=== PATIENT | female | born 1985 | race Caucasian/White ===

== ENCOUNTER 2021-06-18 09:02 | Outpatient (CLI) | payer OTHER, SELFPAY ==
--- NOTE | 2021-06-18 09:00 | RT.EKG_ITS ---
APPROVED REPORT Exam: Resting ECG Reason for Exam: arrythmias Patient Location: O HR:65 bpm ECG Measurements Heart Rate 65 AXIS IN 122 P 32 QRSd 96 QRS 58 QT 406 T 43 QTc 423 Conclusion Sinus rhythm...normal P axis, V-rate 50- 99 ST elev, probable normal early repol pattern...ST elevation, age<55 Baseline wander in lead(s) V4,V5,V6
== END 2021-06-18 09:03 | disposition home or self-care (01) ==
LOC: DI.CARD 09:04
PROVIDERS: PCP Nurse Practitioner Family; Visit Provider Internal Medicine Cardiovascular Disease
DX: I49.9 Cardiac arrhythmia, unspecified (principal); R07.9 Chest pain, unspecified
CPT/HCPCS: 93010

== ENCOUNTER 2021-10-06 01:11 | Outpatient (CLI) | payer OTHER, SELFPAY ==
--- NOTE | 2021-10-06 06:45 | DI.RAD_ITS ---
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 Two images were obtained. PA and lateral views were obtained. COMPARISON: CR CHEST 2 VIEWS PA,LAT from 04/23/2015 FINDINGS: MEDIASTINUM: Normal. HEART: Normal. PULMONARY VASCULATURE: Normal. LUNGS: Clear. PLEURAL SPACE: No pleural effusion or pneumothorax. BONE:Within normal limits for the patient's age. OTHER FINDINGS:Normal. IMPRESSION: No acute pulmonary findings. DATA REPOSITORY: RADIATION DOSE DELIVERED:
== END 2021-10-06 01:31 ==
PROVIDERS: PCP Nurse Practitioner Family; Visit Provider Student in an Organized Health Care Education/Training Program
DX: G71.11 Myotonic muscular dystrophy (principal); R06.2 Wheezing; R06.09 Other forms of dyspnea
CPT/HCPCS: 71046

== ENCOUNTER 2021-10-13 01:29 | Outpatient (CLI) | payer OTHER, SELFPAY ==
[2021-10-13] MEDS: Albuterol HFA 18 GM 200 PUFF INH IH (09:46)
[2021-10-13] MEDS: Inhaler, Assist Device 1 EACH MC (09:46)
--- NOTE | 2021-10-13 11:53 | W.PFT ---
Date of service: 10/13/21 Time of Service: 08:15 Pulmonary Function Test Result Requesting Provider Duchene Indications: Myotonic dystrophy Interpretation Spirometry: There is no airflow limitation. There is no significant bronchodilator effect Lung Volumes: Lung volumes are normal. Diffusion Capacity: Diffusion is normal. Airway Pressure: Airways resistance is normal. Impression Normal pulmonary function test. Note: When compared to 12/25/20, the FEV1 and FVC are slightly improved. Clinical Correlation therefore is recommended.
== END 2021-10-13 01:30 | disposition home or self-care (01) ==
LOC: RT 01:30
PROVIDERS: PCP Nurse Practitioner Family; Visit Provider Student in an Organized Health Care Education/Training Program
DX: G71.11 Myotonic muscular dystrophy (principal); R06.09 Other forms of dyspnea; R06.2 Wheezing; Z87.891 Personal history of nicotine dependence
CPT/HCPCS: 94060; 94726; 94729

== ENCOUNTER 2022-01-26 14:34 | Outpatient (CLI) | payer OTHER, SELFPAY ==
[2022-01-26 16:33] LABS: Abs Immature Grans 0.01 10^3/uL (0.0-0.06); Absolute Basophil Count 0.02 10^3/uL (0.0-0.2); Absolute Eosinophil Count 0.25 10^3/uL (0.0-0.7); Absolute Lymphocyte Count 1.68 10^3/uL (1.2-3.4); Absolute Monocyte Count 0.34 10^3/uL (0.1-0.8); Absolute Neutrophil Count 2.88 10^3/uL (1.2-6.7); Basophils % 0.4; Eosinophils % 4.8; HCT 40.5 % (36.0-46.0); HGB 13.3 g/dL (11.2-15.7); Immature Grans % 0.2; Lymphocytes % 32.4; MCH 29.1 pg (27.0-33.0); MCHC 32.8 % (32.0-36.0); MCV 88.6 fL (80-95); MPV 12.3 fL (8.0-11.0); Monocytes % 6.6; Neutrophils % 55.6; Nucleated RBC 0 %; Platelet Count 191 10^3/uL (130-400); RBC 4.57 10^6/uL (3.93-5.22); RDW 12.4 % (11.7-14.6); RDW-SD 40.3 fL; WBC 5.18 10^3/uL (4.4-10.8)
[2022-01-26 16:39] LABS: ALT 24 U/L (14-59); AST 13 U/L (15-37); Albumin 4.3 g/dL (3.4-5.0); Alkaline Phosphatase 78 U/L (46-116); Anion Gap 7.8 mmol/L (3-11); BUN 9 mg/dL (7-18); Bilirubin, Total 0.6 mg/dL (0.2-1.0); CO2 28.2 mmol/L (21.0-32.0); CREATININE 0.8 mg/dL (0.55-1.02); Calcium 9.1 mg/dL (8.5-10.1); Chloride 103 mmol/L (98-107); Glucose 90 mg/dL (74-106); Lipase 83 U/L (73-393); Potassium 3.5 mmol/L (3.5-5.1); Sodium 139 mmol/L (136-145); Total Protein 7.3 g/dL (6.4-8.2)
[2022-01-26 16:41] LABS: C-Reactive Protein < 0.05 mg/dL (0.0-0.3)
[2022-01-26 20:33] LABS: Bilirubin Negative (Negative); Blood Negative (Negative); Clarity Clear (Clear); Glucose Negative (Negative); Ketones Negative (Negative); Leukocyte Esterase Negative (Negative); Nitrite Negative (Negative); Specific Gravity 1.025 (1.005-1.025); Urobilinogen 0.2 EU/dL (Up TO 0.2)
== END 2022-01-26 14:35 | disposition home or self-care (01) ==
LOC: LBO 14:34
PROVIDERS: PCP Nurse Practitioner Family; Visit Provider Family Medicine
DX: I10 Essential (primary) hypertension (principal); R10.11 Right upper quadrant pain; R19.8 Other specified symptoms and signs involving the digestive system and abdomen; J45.909 Unspecified asthma, uncomplicated
CPT/HCPCS: 36415; 80053; 83690; 81003; 85025; 86140

== ENCOUNTER 2022-08-30 12:21 | Outpatient (REF) | payer OTHER, SELFPAY ==
--- NOTE | 2022-08-30 09:25 | PAPFT_PTH ---
PATIENT: Jennie Logan LOC: [facility] U#:[id number] AGE/SX: 37/F ROOM: RE08/30/[address]: Milana Lundy MD : 1985 BED: DIS: 08/30/2022 SPEC #: [id number] RECD: 08/30/22 12:44 STATUS: KARIME REQ #: [id number] JASMIN: 08/30/22 09:[address]: Milana Lundy DEPT: [facility] Cytology RECD BY: Martina Hurtado ENTERED: 08/30/22 12:45 SP TYPE: PAPFT OTHR DR: Alonzo Santos, MATTHEW Tissues: 1 - CX/ENDOCX FOR PAP SMEARS Procedures: PAP THIN PREP/UVM Screening HPV DNA PROBE Comments:
== END 2022-08-30 12:22 | disposition home or self-care (01) ==
LOC: LBN 12:21
PROVIDERS: PCP Nurse Practitioner Family; Visit Provider Obstetrics & Gynecology
DX: Z12.4 Encounter for screening for malignant neoplasm of cervix (principal); Z11.51 Encounter for screening for human papillomavirus (HPV)
CPT/HCPCS: 88142; 87624

== ENCOUNTER 2022-12-01 11:39 | Emergency (ER) | payer OTHER, SELFPAY ==
[2022-12-01 11:56] VITALS: BP 139/76; PULSE 79; RESP 17; TEMP 36.8; O2SAT 99
--- NOTE | 2022-12-01 12:15 | DI.US_ITS ---
Exam(s) US LOWER EXTREMITY VENOUS RT EXAM: US LOWER EXTREMITY VENOUS RT CLINICAL HISTORY: right leg pain, hx of dvt TECHNIQUE: Right lower extremity venous ultrasound performed using grayscale, color-flow, and spectr al Doppler analysis. COMPARISON: No exams were available for comparison FINDINGS: The right common femoral, femoral and popliteal veins demonstrate normal compressibility, augmentatio n, and color Doppler. The posterior tibial veins are patent. The saphenofemoral junction is unremark able. There is no evidence of a Rios cyst. The soft tissues are unremarkable. IMPRESSION: 1. No evidence of a right lower extremity DVT. 2. Findings were discussed with the emergency department at 2:05 p.m. on 12/01/2022. DATA REPOSITORY:
--- NOTE | 2022-12-01 12:23 | W.ED.GENAD ---
Discharge Plan Disposition Patient Disposition: Home Condition: Stable Discharge Details Clinical Impression: Leg pain, right, Generalized headaches Primary Care Provider: Alonzo Santos ED Provider: Abraham Gutierres Home Meds and New Rx's Prescriptions: New cyclobenzaprine 10 mg tablet 10 mg PO TID PRNQty: 20 0RF Continued (DME) Space Chamber Spacer See Rx Instructions .ROUTE .MEDSUPPLY Qty: 1 0RF Rx Instructions: As directed benzonatate 100 mg capsule 100 mg PO TID PRN (Reason: cough) Qty: 60 0RF albuterol (refill) 90 mcg/actuation aerosol inhalation carboxymethylcellulose sodium [Refresh Tears] 0.5 % drops 1 drp ophthalmic (eye) QID Mirena 20 mcg/24 hours (7 yrs) 52 mg intrauterine device 1 device intrauterine ONCE Rx Instructions: as a single dose Discharge Instructions Additional Instructions: Your ultrasoud and cat scan did not show concerning findings at this time follow up with your primary care provider and manager education if you have severe worsening pain, or new symptoms such as high fevers return to the emergency department Medical Decision Making 37 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 Denies any fevers, chills. She also has had intermittent headaches for the past few weeks and localizes it to just above the pinna bilaterally. She arrives hemodynamically stable speaking clearly and in no distress. She has a rash on her forehead that has been present for weeks, is mildly erythematous and various sizes and shapes, flat, not warm to touch and does donny. Suspect dermatitis, no findings to suggest infectious etiology or sjs/ten. She is caox4, clear lungs, normal tm's, no meninismus, no focal deficits, normal gait. She localzies the right leg pain to the mid posterior right leg and has no noticeable swelling of the leg, intact distal sensation. She is able to bear weight and has no bony tenderness, has mild tenderness of the mid quadriceps where she has the pain, no fluctuance or rash. Given her history will obtain dvt study of the right leg though pain seems musculoskeletal in nature. Her headache is intermittent and no fevers or meningismus so doubt infectious etiology. Will obtain ct of the head though suspicion for hemorrhage is low. imaging unremarkable, she is stable in no distress. Unclear etiology for her symptoms but do not feel life threatening or emergent cause for her symptoms is present. She is stable for d/c, advised to f/u with her pcp and return precautions given Differential Diagnosis Differential Diagnosis: strain, muscle pain, tension headaches, dvt Imaging Data Radiologic Study: Attestation: I personally reviewed and interpreted this imaging study as follows: Imaging: CT Scan Radiologist's impression: no acute findings Radiologic Study #2: Attestation: I personally reviewed and interpreted this imaging study as follows: Imaging: X-Ray and Ultrasound Radiologist's impression: no acute findings HPI General Mode of arrival: ambulatory. Date/Time Provider Initiated Documentation: 12/01/22 11:41. Limitations to Documentation: no limitations. Information obtained by: patient. History of Present Illness 37 year old F presents to the emergency department with the chief complaint of right leg pain, described as moderate, Quality is described as aching, and is localized to the right and lower extremity. Patient reports no radiation. Patient started experiencing this week(s) (3) and it has been constant. No relieving factors improve symptom(s), No exacerbating factors reported . Patient notes headaches. Related Data Home Medications Medication Instructions Recorded Confirmed inhalational spacing device (Space #1 ea 01/25/22 12/01/22 Chamber) albuterol (refill) 90 mcg inhalation 06/07/22 12/01/22 mcg/actuation aerosol inhaler carboxymethylcellulose sodium 0.5 1 drp ophthalmic (eye) QID 06/08/22 12/01/22 % eye drops (Refresh Tears) levonorgestrel 21 mcg/24 hours (8 1 device intrauterine ONCE 06/08/22 12/01/22 yrs) 52 mg intrauterine device (Mirena) benzonatate 100 mg capsule 100 mg PO TID PRN cough #60 caps 08/11/22 12/01/22 cyclobenzaprine 10 mg tablet 10 mg PO TID PRN #20 tabs 12/01/22 Previous Rx's Medication Instructions Recorded inhalational spacing device (Space #1 ea 01/25/22 Chamber) benzonatate 100 mg capsule 100 mg PO TID PRN cough #60 caps 08/11/22 cyclobenzaprine 10 mg tablet 10 mg PO TID PRN #20 tabs 12/01/22 Allergies Allergy/AdvReac Type Severity Reaction Status Date / Time amoxicillin Allergy Severe Anaphylaxis Verified 12/01/22 11:59 ampicillin Allergy Severe Anaphylaxis Verified 12/01/22 11:59 latex Allergy Severe Anaphylaxis Verified 12/01/22 11:59 Penicillins Allergy Severe Anaphylaxsi Verified 12/01/22 11:59 s Sulfa (Sulfonamide Allergy Severe Anaphylaxsi Verified 12/01/22 11:59 Antibiotics) s acetaminophen [From Tylenol] Allergy Unknown Verified 12/01/22 11:59 aspirin Allergy Unknown Wheezing Verified 12/01/22 11:59 nut - unspecified Allergy Unknown Swelling/Ed Verified 12/01/22 11:59 david magnesium AdvReac Intermediate Verified 12/01/22 11:59 procaine HCl [From Novocain] AdvReac Unknown effective Verified 12/01/22 11:59 in high does only codeine AdvReac effective Verified 12/01/22 11:59 only in high doses rabbit fur Allergy Unknown Uncoded 12/01/22 11:59 depo provera AdvReac Severe swelling Uncoded 12/01/22 11:59 at inj.site General Stated Complaint: GenMedical ERIC: 3 Review of Systems All systems reviewed & are unremarkable except as noted in HPI and below Constitutional Constitutional: Denies chills, Denies fever(s) and Denies weakness Eyes Eyes: Denies loss of vision Cardiovascular Cardiovascular: Denies chest pain and Denies dyspnea Respiratory Respiratory: Denies cough and Denies dyspnea Gastrointestinal Gastrointestinal: Denies abdominal pain, Denies nausea and Denies vomiting Musculoskeletal Musculoskeletal: Denies joint swelling Neurologic Neurologic: Denies loss of vision and Denies weakness PFSH All Active Problems (Updated 12/01/22 @ 14:03 by Abraham Gutierres MD) Alopecia areata (Acute 07/02/15) 06/2015; DR. URENA Dry eye syndrome of bilateral lacrimal glands (Acute ~02/24/18) Myopia, bilateral (Acute ~02/17/18) Regular astigmatism, bilateral (Acute ~02/17/18) Unspecified cataract (Chronic ~02/17/18) PRESENILE POSTERIOR SUBCAPSULAR POLAR Dorsalgia (Acute ~04/20/18) Eosinophilic esophagitis (Acute ~01/16/18) Myotonic muscular dystrophy (Acute ~05/26/18) Chronic pain syndrome (Chronic) Intestinal polyps (Acute) Dysphagia (Acute) Hx bleach ingestion age 2, also MD Hypermobility of joint (Acute) Neuropathic pain (Acute) Exercise intolerance (Acute) Sicca syndrome with keratoconjunctivitis (Acute) Tricuspid regurgitation (Acute) Audrey-Danlos syndrome type III (Acute) Cardiac arrhythmia (Acute) Right shoulder injury (Acute) Autoimmune disease (Acute) Pelvic pain (Acute) Abnormal uterine bleeding (Acute) Asthma (Chronic) Heart murmur (Acute) Headache (Acute) Skin rash (Acute) Leg pain, right (Acute) Generalized headaches (Acute) Medical History Chalazion removal Constipation Costochondritis (~07/15/10) Depression with anxiety (~10/04/12) Eustachian tube dysfunction (~02/12/11) both ears Fibroids Several very small intramural fibroids on sono 10/13 Fracture of unspecified phalanx of right index finger, initial encounter for closed fracture (~11/13/19) Galactorrhea (~10/04/12) NORMAL PROLACTINS Hemangioma of skin and subcutaneous tissue (~03/14/18) History of venous thromboembolism (03/28/15) Pt reports Hx VTE and PE in 2011 on OCPs Meniere's disease of both ears (~11/26/11) Post traumatic stress disorder (~10/04/12) Posterior capsule opacification (~05/07/12) Pseudophakia (~06/02/11) Tobacco use (03/28/15) Surgical History EGD - IV Sedation UNSURE OF DATE; [facility] WITH ESOPHAGEAL DILATION; PATIENT REPORTED Extraction of cataract Bilateral H/O colposcopy with cervical biopsy (~09/30/10) w/ endocervical curettage H/O LEEP hemangioma removal (~04/2015) History of esophagogastroduodenoscopy History of laser assisted in situ keratomileusis right eye KNEE SURGERIES Bilateral release right and left patella Family History Mother Diabetes Heart disease Stroke Depression Hypertension Father Essential hypertension Myotonic dystrophy Hyperlipidemia Skin cancer Sister Essential hypertension Brother Essential hypertension Hyperlipidemia Heart disease Grandfather Essential hypertension Heart disease Hyperlipidemia Grandfather Ovarian cancer Essential hypertension Personal history of malignant neoplasm COLON/PROSTATE Heart disease Hyperlipidemia Myotonic dystrophy Stroke Grandmother Diabetes Essential hypertension Personal history of malignant neoplasm BRAIN Grandmother Essential hypertension Personal history of malignant neoplasm BREAST Heart disease Hyperlipidemia Maternal Aunt Ovarian cancer Myotonic dystrophy Maternal Aunt Ovarian cancer Maternal Uncle Myotonic dystrophy Social History Smoking/Tobacco Use Status: Former Tobacco Use tobacco type: cigarettes Quit Date: 10/24/15 Tobacco: How many years used: 10 Second Hand Exposure: Yes Smoking risk assessment performed?: Yes Alcohol Intake: current Alcohol Intake frequency: a few times a month Alcohol type: hard liquor Drug use: Never Caregiver/Support person: No Household members: spouse, family and children Housing: house Communication Needs: None Do you need help understanding health information?: Rarely Pets and animals: Yes Pets and animals: cat(s) and dog(s) Sexually active: Yes Do you think of yourself as: straight/heterosexual Current gender identity: female What is your relationship status?: How often do you talk on the phone with friends or family?: once per week How often do you get together with friends or relatives?: three or more times per week How often do you attend judaism or mandaeism services?: decline to answer Do you belong to any clubs or organized social groups?: no Panel score (0-1 are the most socially isolated patients): 2 What type of physical activity do you participate in: walking Duration: 30-45 minutes/day Frequency: 5-6 times per week Special laith needs: No Seatbelt use: always Helmet use: Yes Helmet use: always Drive intox or ride w/intox driver guard: No Do you feel safe at home: Yes History History 1 Para 1 Hx # Term Pregnancies 1 Multiple births Hx # Pregnancies Ectopic pregnancies AB induced Hx Number of Living Children 1 AB spontaneous Past Pregnancies Del. Date GA/Weeks # Preg Succ Route Wgt Sex Labor Lgth Anesthesia Location [facility] 10/25/16 37 vaginal Male [facility] Delivery Date: 10/25/16 Last Updated by: Milana Lundy M.D. cardiac arrest in response to epinephrine Exam Const General: no acute distress Orientation: alert HENMT Head: no palpable skull fracture and normocephalic Ears: external ears normal General nose exam: external nose normal Mouth: moist mucous membranes Eyes General: appearance normal, both eyes and all related structures Neck Neck: normal visual inspection Resp Effort & Inspection: normal respiratory effort and able to speak in complete sentences Cardio Rate: regular rate Skin General skin exam: elasticity normal Neuro General: patient alert and patient oriented x3 Extrem General: normal to inspection Psych Mental Status: mental status grossly normal Course Vital Signs Vital signs: Vital Signs Temperature 36.8 C 12/01/22 11:56 Pulse 79 12/01/22 11:56 Respiratory Rate 17 12/01/22 11:56 Blood Pressure 139/76 12/01/22 11:56 Pulse Oximetry 99 12/01/22 11:56 Temperature 36.8 C 12/01/22 11:56 Temperature Source Tympanic 12/01/22 11:56 Pulse 79 12/01/22 11:56 Respiratory Rate 17 12/01/22 11:56 Respiratory Effort 12/01/22 12:12 Respiratory Depth Normal 12/01/22 12:12 Respiratory Pattern Normal 12/01/22 12:12 Blood Pressure 139/76 12/01/22 11:56 Blood Pressure Position Sitting 12/01/22 11:56 Pulse Oximetry 99 12/01/22 11:56 Oxygen Delivery Method Room Air 12/01/22 11:56 Oxygen Flow Rate 0 12/01/22 11:56 Pain Level 7 12/01/22 11:56
--- NOTE | 2022-12-01 13:15 | DI.CT_ITS ---
Exam(s) CT HEAD WO EXAM: CT HEAD WO CLINICAL HISTORY: headaches. TECHNIQUE: Imaging Protocol: Axial computed tomography images with coronal and sagittal reformatted images were created and reviewed COMPARISON: No exams were available for comparison FINDINGS: Ventricles and Extra axial spaces: Normal in size and morphology for the patient's age. Hemorrhage: None. Cerebral parenchyma: Normal. Midline shift: None. Brainstem/Cerebellum: Normal. Calvarium: Normal. Visualized Paranasal sinuses/Mastoids: Clear. Soft Tissues: Unremarkable. IMPRESSION: 1. No acute intracranial process. 2. Findings were discussed with the emergency department at 1:40 p.m. on 12/01/2022. RADIATION DOSE DELIVERED: 677.6mGy.cm Total DLP DATA REPOSITORY: All CT scans at this facility are submitted to the National Radiology Data Registry (NRDR) Dose Index Registry (DIR) with the [employer] (ACR). RADIATION OPTIMIZATION: All CT scans at this facility use at least one of these dose optimization te chniques: automated exposure control; mA and/or kV adjustment per patient size (includes targeted exa ms where dose is matched to clinical indication); or iterative reconstruction.
== END 2022-12-01 14:20 | disposition home or self-care (01) ==
PROVIDERS: Emergency Provider Emergency Medicine; PCP Nurse Practitioner Family
DX: M79.651 Pain in right thigh (principal); R51.9 Headache, unspecified
CPT/HCPCS: 81025; 99284; 70450; 93971

== ENCOUNTER 2022-12-09 02:49 | Outpatient (CLI) | payer OTHER, SELFPAY ==
[2022-12-09] MEDS: Albuterol HFA 18 GM 200 PUFF INH IH (11:22)
[2022-12-09] MEDS: Inhaler, Assist Device 1 EACH MC (11:23)
--- NOTE | 2022-12-10 15:24 | W.PFT ---
Date of service: 12/09/22 Time of Service: 08:04 Pulmonary Function Test Result Requesting Provider Pauline Indications: Muscular dystrophy Interpretation Spirometry: There is no airflow limitation. There is no significant bronchodilator response. Normal MIP. Low MEP. Lung Volumes: Normal lung volumes. Diffusion Capacity: Normal diffusion. Airway Pressure: Normal resistance. Note: Normal pulmonary function testing. The significance of an isolated low MEP is unclear. Clinical Correlation therefore is recommended.
== END 2022-12-09 02:50 | disposition home or self-care (01) ==
LOC: RT 02:49
PROVIDERS: PCP Nurse Practitioner Family; Visit Provider Student in an Organized Health Care Education/Training Program
DX: G71.11 Myotonic muscular dystrophy (principal); Z87.891 Personal history of nicotine dependence
CPT/HCPCS: 94060; 94726; 94729

== ENCOUNTER 2023-11-23 09:52 | Outpatient (REF) | payer OTHER, SELFPAY | END 2023-11-23 09:53 | disposition home or self-care (01) | LOC: LBN 09:52 | PROVIDERS: PCP Nurse Practitioner Family; Visit Provider Obstetrics & Gynecology | DX: R10.2 Pelvic and perineal pain (principal) | CPT/HCPCS: 87480; 87510; 87660 ==

== ENCOUNTER → 2023-12-13 04:26 | Outpatient (CLI) | payer OTHER, SELFPAY ==
--- NOTE | 2023-12-13 06:45 | DI.RAD_ITS ---
Exam(s) XR CHEST 2V PA LATERAL EXAM: XR CHEST 2V PA LATERAL CLINICAL HISTORY: persistent cough after antibiotics,r05.9. TECHNIQUE: 2D digital imaging was performed. COMPARISON: CR XR CHEST 2V PA LATERAL from 10/06/2021 FINDINGS: 2 views: Heart size is normal. The mediastinum is not widened. Lungs are clear. No infiltrates nor pleural effusions. IMPRESSION: No acute pulmonary findings. DATA REPOSITORY: RADIATION DOSE DELIVERED:
== END ==
PROVIDERS: PCP Nurse Practitioner Family; Visit Provider Nurse Practitioner Family
DX: R05.9 Cough, unspecified (principal)
CPT/HCPCS: 71046

== ENCOUNTER 2024-01-20 02:56 | Outpatient (CLI) | payer OTHER, SELFPAY ==
[2024-01-20] MEDS: Levalbuterol HFA 15 GM INH 4 PUFF IH (09:32)
[2024-01-20] MEDS: Inhaler, Assist Device 1 EACH MC (09:32)
--- NOTE | 2024-01-20 12:51 | W.PFT ---
Date of service: 01/20/24 Time of Service: 08:05 Pulmonary Function Test Result Indications: Myotonic muscular dystrophy Interpretation Spirometry: There is no airflow limitation. No bronchodilator response. Lung Volumes: Normal lung volumes Diffusion Capacity: Normal diffusion Airway Pressure: No increased airways resistance Impression Normal pulmonary function testing Clinical Correlation therefore is recommended.
== END 2024-01-20 02:57 | disposition home or self-care (01) ==
LOC: RT 02:56
PROVIDERS: PCP Nurse Practitioner Family; Visit Provider Student in an Organized Health Care Education/Training Program
DX: G71.11 Myotonic muscular dystrophy (principal)
CPT/HCPCS: 94060; 94726; 94729

== ENCOUNTER 2024-05-08 09:14 | Outpatient (CLI) | payer OTHER, SELFPAY ==
[2024-05-08 09:41] LABS: Calculated LDL 80 mg/dL (<100); Cholesterol 143 mg/dL (<200); HDL Cholesterol 51 mg/dL (40-60); Triglyceride 61 mg/dL (<150)
[2024-05-15 15:03] LABS: Vascular Endothelial Growth Fa 60.7 pg/mL (<=96.2)
== END 2024-05-08 09:15 | disposition home or self-care (01) ==
LOC: LBO 09:14
PROVIDERS: PCP Nurse Practitioner Family; Visit Provider Physician Assistant Surgical
DX: Z13.220 Encounter for screening for lipoid disorders (principal); J84.81 Lymphangioleiomyomatosis; J98.4 Other disorders of lung
CPT/HCPCS: 36415; 80061; 83520

== ENCOUNTER 2024-05-18 14:14 | Outpatient (CLI) | payer OTHER, SELFPAY ==
[2024-05-18 22:28] LABS: Rheumatoid Factor 16.1 IU/mL (<12.0)
[2024-05-21 09:49] LABS: Alpha 1 Antitrypsin,Serum 129 mg/dL (90-200); Kappa Free Light Chain 1.13 mg/dL (0.33-1.94); Lambda Free Light Chain 0.92 mg/dL (0.57-2.63)
[2024-05-21 11:11] LABS: Ro60 Ab, IgG 13.8 CU (<20.0); SS-A/Ro, IgG <2.3 CU (<20.0); SS-B (La) Ab, IgG 8.5 CU (<20.0)
[2024-05-21 13:23] LABS: ANA Interpretation Negative (Negative)
== END 2024-05-18 14:15 | disposition home or self-care (01) ==
LOC: LBO 14:15
PROVIDERS: PCP Nurse Practitioner Family; Visit Provider Physician Assistant Surgical
DX: J98.4 Other disorders of lung (principal)
CPT/HCPCS: 36415; 82103; 83883; 86038; 86235; 86431

== ENCOUNTER 2024-08-24 02:56 | Outpatient (CLI) | payer OTHER, SELFPAY ==
[2024-08-24] MEDS: Inhaler, Assist Device 1 EACH MC (12:33)
[2024-08-24] MEDS: Methacholine 100 MG VIAL IH (12:33)
[2024-08-24] MEDS: Levalbuterol HFA 15 GM INH 4 PUFF IH (14:01)
--- NOTE | 2024-08-28 14:29 | PFT_ITS ---
Date of service: 08/24/24 Time of Service: 10:11 Pulmonary Function Test Result Indications: Myotonic dystrophy Interpretation Spirometry: No baseline airflow limitation. There was a 5% decrease in FEV1 with admin istration of 16 mg/mL methacholine. There was a 6% decrease in FEV1 and a 7% increase in FVC with supine positioning. Impression Normal baseline spirometry. Negative methacholine challenge. No change in spirometry with supine positioning. Clinical Correlation therefore is recommended.
== END 2024-08-24 02:57 | disposition home or self-care (01) ==
LOC: RT 02:56
PROVIDERS: PCP Nurse Practitioner Family; Visit Provider Physician Assistant Surgical
DX: G71.11 Myotonic muscular dystrophy (principal)
CPT/HCPCS: 94060; 94070; J7674

== ENCOUNTER 2024-09-11 01:54 | Outpatient (CLI) | payer OTHER, SELFPAY ==
--- NOTE | 2024-09-11 10:20 | DI.MAMMO_ITS ---
Exam(s) MAMMO SCREENING EXAM: MAMMO SCREENING CLINICAL HISTORY: screening,Z12.39. TECHNIQUE: Bilateral full field digital CC and MLO mammographic images were obtained with 3D tomosyn thesis and utilizing computer aided detection (CAD). COMPARISON: None. This is a baseline mammogram on this 39-year-old patient FINDINGS: Fibroglandular tissue is moderately dense, this somewhat decreasing the sensitivity of the mammogram for finding hidden underlying lesions. There are no obvious focal findings in the right breast. In the left breast on the 3D MLO view there is a subtle suggestion of a 1.7 x 1.3 cm well-defined ova l nodule located 4 cm above the nipple on the MLO view.. Spot compression view and ultrasound recomm ended. There are no malignant-appearing microcalcification groups in this region or elsewhere in either [address]. There is no significant architectural distortion nor skin thickening-retraction. IMPRESSION: Dense bilateral fibroglandular tissue. No radiographic evidence of malignancy in the right breast. However, there is the suggestion of a 17 x 13 mm well-defined nodule in the left breast as described above. Spot compression MLO view and breast ultrasound are recommended. BI-RADS Category 0 - Incomplete: Need additional imaging evaluation Breast Density - Category C - Heterogeneously dense Breast density Category C or D implies that the patient has dense breast tissue. Dense breast tissue can make it harder to find cancer on a mammogram. Dense breast tissue is also associated with an incr eased risk of breast cancer. This information about the result of the mammogram report was provided to the patient to raise their awareness. Use this report when you speak with the patient about their risks for breast cancer, which includes their family history. At that time, you may recommend additional screening tests (Ultrasoun d or MRI) as these tests may add significant information. A negative radiographic report should not delay biopsy if a dominant or clinically suspicious mass is present. Up to ten percent of cancers are not identified on mammography. A negative report may reinforce clinical impression. Adenosis and dense breasts may obscure an underlying neoplasm. False positive reports average 6 to 10%. Patient will receive a letter notifying them of these results.
== END 2024-09-11 02:14 ==
LOC: DI 01:54
PROVIDERS: PCP Nurse Practitioner Family; Visit Provider Nurse Practitioner Family
DX: Z12.31 Encounter for screening mammogram for malignant neoplasm of breast (principal); R92.323 Mammographic fibroglandular density, bilateral breasts; R92.333 Mammographic heterogeneous density, bilateral breasts
CPT/HCPCS: 77063; 77067

== ENCOUNTER 2024-09-18 00:46 | Outpatient (CLI) | payer OTHER, SELFPAY ==
--- NOTE | 2024-09-18 | DI.US_ITS ---
Exam(s) MG MAMMO SCREEN CALL BACK UNI US BREAST LT LIMITED EXAM: MG MAMMO SCREEN CALL BACK UNI and U/S breast LT limited CLINICAL HISTORY: 17 x 13 mm well-defined oval nodule in lt breast 4 cm above nipple. TECHNIQUE: Craniocaudal and mediolateral oblique Full Field Digital Mammography views of the left br east with Computer Aided Diagnosis followed by Tomosynthesis and left breast ultrasound. COMPARISON: Comparison is made with prior examinations. FINDINGS: Mammography/Tomosynthesis: Masses/Architectural Distortion: The well-circumscribed ovoid nodule in the superior retroareolar reg ion of the left breast is again visualized. Microcalcifictions: No suspicious pleomorphic-type are seen. Skin Thickening/Nipple Retraction: None. Limited left breast US: Echotexture: Normal appearance of the glandular tissue. Shadowing: No suspicious foci. Cyst: Several simple cysts are seen in the left breast in the 12 to 4 o'clock region. There is a 1.8 x 0.9 x 1.3 cm cyst at the 12 o'clock position of the left breast 3 cm from the nipple which would c orrespond in location to the mammographic abnormality. No suspicious cysts are seen. Solid lesions: None seen. Ductal dilation: None. IMPRESSION: 1. No evidence of malignancy is noted. 2. Unless there is more urgent need, follow-up screening mammography is recommended, as per [place] [employer] guidelines. 3. The findings were discussed with the patient on the date of the examination. BI-RADS Category 2 - Benign Findings Breast Density - Category C - Heterogeneously dense Breast density Category C or D implies that the patient has dense breast tissue. Dense breast tissue can make it harder to find cancer on a mammogram. Dense breast tissue is also associated with an incr eased risk of breast cancer. This information about the result of the mammogram report was provided to the patient to raise their awareness. Use this report when you speak with the patient about their risks for breast cancer, which includes their family history. At that time, you may recommend additional screening tests (Ultrasoun d or MRI) as these tests may add significant information. A negative radiographic report should not delay biopsy if a dominant or clinically suspicious mass is present. Up to ten percent of cancers are not identified on mammography. A negative report may reinforce clinical impression. Adenosis and dense breasts may obscure an underlying neoplasm. False positive reports average 6 to 10%. Patient will receive a letter notifying them of these results.
== END 2024-09-18 01:06 ==
LOC: DI 00:46
PROVIDERS: PCP Nurse Practitioner Family; Visit Provider Nurse Practitioner Family
DX: Z12.31 Encounter for screening mammogram for malignant neoplasm of breast (principal); R92.333 Mammographic heterogeneous density, bilateral breasts; D24.2 Benign neoplasm of left breast
CPT/HCPCS: 76642; 77063; 77067

== ENCOUNTER 2024-10-02 01:04 | Outpatient (CLI) | payer OTHER, SELFPAY ==
--- NOTE | 2024-10-02 08:14 | DI.RAD_ITS ---
Exam(s) XR KNEE RT 3V AP,LAT,MAHAD EXAM: XR KNEE RT 3V AP,LAT,MAHAD CLINICAL HISTORY: r knee buckling,m25.361. TECHNIQUE: 2D digital imaging was performed. COMPARISON: No exams were available for comparison FINDINGS: 3 views No evidence of fracture or joint effusion. No joint space narrowing nor other degenerative changes. No osteochondral defects. Bone density normal. No osseous lesions. IMPRESSION: No significant radiographic findings on these three views of the right knee. DATA REPOSITORY: RADIATION DOSE DELIVERED:
== END 2024-10-02 01:24 ==
LOC: DI 01:04
PROVIDERS: PCP Family Medicine; Visit Provider Family Medicine
DX: M25.361 Other instability, right knee (principal)
CPT/HCPCS: 73562

== ENCOUNTER 2024-10-18 17:54 | Outpatient (REF) | payer OTHER, SELFPAY ==
[2024-10-18 21:32] LABS: COVID-19 PCR Negative (Negative); Influenza A PCR Negative (Negative); Influenza B PCR Negative (Negative); RSV PCR Negative (Negative)
[2024-10-18 21:42] LABS: Source Nasopharynx
== END 2024-10-18 17:55 | disposition home or self-care (01) ==
LOC: LBN 17:54
PROVIDERS: PCP Family Medicine; Visit Provider Nurse Practitioner Family
DX: R05.9 Cough, unspecified (principal)
CPT/HCPCS: 87637

== ENCOUNTER 2025-05-24 02:31 | Outpatient (CLI) | payer OTHER, SELFPAY ==
--- NOTE | 2025-05-24 12:35 | W.NUTRFU ---
Date of service: 05/24/25 Time of Service: 12:00 Nutrition Note NOTE: Jennie referred to nutrition visit for abnormal weight gain. States she wants to lose weight (mentions 30lbs as her goal) and also wants guidance on nutrition support for muscular dystrophy and Audrey-Danlos Syndrom type III. And specifically wants a calorie deficit while not sacrificing meeting her daily protein needs. States she does not eat chicken due to sensitivity (eosinophilic esophagitis). was 167lbs on 05/16/25 at 68.5 - BMI of 25.0 (congruent with slightly overweight). She is on her feet a lot and active/ambulatory but does not engage in exercise currently. Share my opinion that I think a 30lb weight loss is excessive for her current height and suggested she focus more on body recomposition (working on increasing lean body mass while reducing fat - especially visceral fat). Reviewed no specific diet mgt of her above chronic complaints other than a good solid foundationally healthy diet - high fiber and meeting protein needs and aiming for healthy fats with lower intake of total fat and saturated fat. Basically focusing on REAL food choices as well and avoiding refined starches and added sugars and foods that are heavily processed. She was interested in menu planning with macros - I gave her the following goals to begin with: 1700kcals (current needs estimated at 1931kcals), 127g protein, 170g total carbs (at least 25 g fiber and no more than 17g added sugar), 56g total fat (no more than 17g SFA). I showed her how to enter these parameters as prompts in AI website so she can generate some meal plans based on above macros along with letting it know foods to avoid (such as chicken). Encouraged MVI/mineral supplementation to cover gaps. Jennie has my contact info should she desire more resources or follow up Time Spent in Nutritional Counseling and Treatment: 25 min
== END 2025-05-24 02:32 | disposition home or self-care (01) ==
PROVIDERS: PCP Family Medicine; Visit Provider Dietitian, Registered
DX: R63.5 Abnormal weight gain (principal)
CPT/HCPCS: 00123; 97802

== ENCOUNTER → 2025-09-20 01:31 | Outpatient (CLI) | payer OTHER, SELFPAY ==
--- NOTE | 2025-09-20 08:50 | DI.MAMMO_ITS ---
Exam(s) MAMMO SCREENING EXAM: MAMMO SCREENING CLINICAL HISTORY: screening, Z12.39 TECHNIQUE: Mammograms were interpreted according to the usual protocol including computer analysis with CAD system, tomosynthesis and C-view imaging. COMPARISON: 2023 FINDINGS: The breasts are composed of heterogeneously dense fibroglandular densities, Breast Density category C. No suspicious masses or suspicious microcalcifications are seen. No skin thickening or abnormal axillary lymph nodes are seen. There has been no significant change from prior exams. IMPRESSION: BI-RADS Category 1, Negative mammogram. Yearly screening mammography is recommended. Breast Density: Category C - The breasts are heterogeneously dense, which may obscure small masses. Breast density Category C or D implies that the patient has dense breast tissue. Dense breast tissue can make it harder to find cancer on a mammogram. Dense breast tissue is also associated with an increased risk of breast cancer. This information about the result of the mammogram report was provided to the patient to raise their awareness. Use this report when you speak with the patient about their risks for breast cancer, which includes their family history. At that time, you may recommend additional screening tests (Ultrasound or MRI) as these tests may add significant information. A negative radiographic report should not delay biopsy if a dominant or clinically suspicious mass is present. Up to ten percent of cancers are not identified on mammography. A negative report may reinforce clinical impression. Adenosis and dense breasts may obscure an underlying neoplasm. False positive reports average 6 to 10%.
== END ==
LOC: DI 01:32
PROVIDERS: PCP Family Medicine; Visit Provider Obstetrics & Gynecology
DX: Z12.31 Encounter for screening mammogram for malignant neoplasm of breast (principal); R92.323 Mammographic fibroglandular density, bilateral breasts; R92.333 Mammographic heterogeneous density, bilateral breasts
CPT/HCPCS: 77063; 77067